=== PATIENT | female | born 1945 | race Caucasian/White ===

== ENCOUNTER → 2020-05-13 12:46 | Outpatient (BNVA) | payer MEDICARE, SELFPAY | PROVIDERS: PCP Internal Medicine; Referring Provider Internal Medicine; Visit Provider Internal Medicine Cardiovascular Disease | DX: I48.0 Paroxysmal atrial fibrillation (principal); Z79.01 Long term (current) use of anticoagulants | CPT/HCPCS: 99214 ==

== ENCOUNTER 2021-10-05 12:46 | Emergency (ER) | payer MEDICARE, SELFPAY ==
--- NOTE | ~2021-10-05 | CT_ITS ---
EXAMINATION: CT ANGIOGRAM HEAD CT ANGIOGRAM NECK CLINICAL INFORMATION: Transient ischemic attack. COMPARISON: CT head from 10/05/2021. TECHNIQUE: Initial noncontrast program coordinator executive education imaging of the head and neck was performed. Noncontrast head CT was also performed. Test bolus sequences followed by intravenous administration 70 mL of Omnipaque 350. Helical imaging was performed in the axial plane from the aortic arch to the skull vertex. Delayed postcontrast imaging of the head was also performed. The data was processed at the staff nuclear medicine technologist's workstation for generation of MIP sequences. Angled MIPs and volume rendered reformatted images were also generated at an offline 3D workstation. Stenoses are assessed in accordance with NASCET criteria unless otherwise indicated. This CT examination was performed using dose optimization techniques as appropriate, variously including the following: *Automated exposure control. *Adjustment of mA and/or kV according to patient size (this includes techniques or standardized protocols for targeted exams where dose is matched to indication/reason for exam; i.e. extremities or head). *Use of iterative reconstruction technique. DLP: 2215 mGy-cm FINDINGS: CT Head: There is no evidence of acute intracranial hemorrhage or edematous territorial infarction. Scattered hypoattenuation in the periventricular and deep white matter are consistent with mild to moderate microangiopathy. Arizmendi-white matter differentiation is preserved. Proportional prominence of the ventricles and sulcal spaces. No evidence for obstructive hydrocephalus. No abnormal mass effect or midline shift. No extra-axial fluid collections. No pathologic intra-axial enhancement or regional oligemia. No acute soft tissue or osseous abnormalities. Mild mucosal thickening of the paranasal sinuses. The mastoid air cells and middle ear cavities are clear. Multifocal odontogenic enamel erosions. Prominent periapical lucency associated with the strut of the implanted maxillary left molar. Moderate degenerative arthropathy of the temporomandibular joints. Bilateral lens extractions. CT Neck: There appears to be a 2 cm heterogeneous nodular lesion associated with the inferior pole the left thyroid lobe that extends into the upper mediastinum. Multiple additional smaller thyroid nodules. The remaining Cervical soft tissues are within normal limits. Moderate degenerative disc disease from C3-C7. Facet and uncovertebral joint arthropathy leads to osseous encroachment on the neural foramina from C4-T1. CT Upper Chest: Coronary artery calcifications. The visualized lung apices and upper mediastinum are within normal limits. Neck CTA: Aortic Arch: Normal contour and caliber with mild calcific atherosclerotic disease. 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 Great Vessel Origins: No significant stenosis of the branch origins. Right Common Carotid Artery: No focal stenosis or occlusion. Cervical Right Internal Carotid Artery: Normal opacification without focal stenosis or occlusion. Left Common Carotid Artery: No focal stenosis or occlusion. Cervical Left Internal Carotid Artery: Normal opacification without focal stenosis or occlusion. Cervical Right Vertebral Artery: Mildly dominant. No focal stenosis or occlusion. Cervical Left Vertebral Artery: No focal stenosis or occlusion. Brain CTA: Intracranial Internal Carotid Arteries: Mild calcific atherosclerotic disease of the intracranial internal carotid arteries without occlusion or flow-limiting stenosis. Right Anterior Cerebral Artery: Normal A1 segment. Normal opacification of the distal CARINA segments. Left Anterior Cerebral Artery: Normal A1 segment. Normal opacification of the distal CARINA segments. Anterior Communicating Artery: Normal. Right Middle Cerebral Artery: Normal M1 segment of the MCA without focal stenosis or occlusion. Normal arborization of the distal segments. Left Middle Cerebral Artery: Normal M1 segment of the MCA without focal stenosis or occlusion. Normal arborization of the distal segments. Right Vertebral Artery: Normal V4 segment. The posterior inferior cerebellar artery is not well opacified; however, there is no CT evidence of acute occlusion. Left Vertebral Artery: Normal V4 segment. The posterior inferior cerebellar artery is not well opacified; however, there is no CT evidence of acute occlusion. Basilar Artery: Normal without focal stenosis or occlusion. Normal appearance of the proximal superior cerebellar arteries. Right Posterior Cerebral Artery: Normal P1 segment. Normal opacification of the distal CASH OFFICE WORKER segments. Left Posterior Cerebral Artery: Normal P1 segment. Normal opacification of the distal CASH OFFICE WORKER segments. Normal opacification of the superior sagittal, straight, transverse, and sigmoid sinuses. CT/CT angio head neck IMPRESSION: 1. No evidence of acute intracranial hemorrhage or edematous territorial infarction. Mild to moderate underlying microangiopathy. 2. CTA of the head and neck without proximal occlusion or flow-limiting stenosis. 3. There is a heterogeneous 2 cm nodule associated with the left thyroid lobe. Recommend further characterization with thyroid ultrasound. 4. Moderate multilevel degenerative spondyloarthropathy of the cervical spine. 5. Coronary artery calcifications.
--- NOTE | ~2021-10-05 | CT_ITS ---
EXAMINATION: CT HEAD WITHOUT CONTRAST CLINICAL INFORMATION: Amnesia, headache COMPARISON: None TECHNIQUE: Contiguous axial imaging was performed from the skull base to vertex without intravenous administration of contrast. This CT examination was performed using dose optimization techniques as appropriate, variously including the following: *Automated exposure control *Adjustment of mA and/or kV according to patient size (this includes techniques or standardized protocols for targeted exams where dose is matched to indication/reason for exam; i.e. extremities or head) *Use of iterative reconstruction technique DLP: 635 mGy-cm FINDINGS: There is no evidence of acute intracranial hemorrhage or territorial infarction. No abnormal mass effect or midline shift is seen. Arizmendi to white matter differentiation is well preserved. No extra-axial fluid collections are identified. The ventricles are normal in size. There is no abnormal attenuation within the brain parenchyma. The osseous structures and soft tissues are normal. The mastoid air cells and visualized portions of the paranasal sinuses are well aerated. CT/CT head/brain wo con IMPRESSION: No acute intracranial process seen.
[2021-10-05 13:10] VITALS: BP 143/87; PULSE 97; RESP 18; TEMP 36.9; O2SAT 96
[2021-10-05 13:24] VITALS: BP 143/87; PULSE 97; RESP 18; TEMP 36.9; O2SAT 96; BMI 32.1
[2021-10-05 13:29] LABS: MANUAL DIFF FLAG NO
--- NOTE | 2021-10-05 13:29 | MHC.STROKE ---
ASKED TO SEE PATIENT BY CHARGE NURSE. I MET PATIENT AND HER , HE FIRST DESCRIBED THAT HER MEMORY IS OFF, SHE COULDN'T REMEMBER WHAT SHE WAS DOING LAST NIGHT AND THIS MORNING. SHE IS AOx3, NIHSS = 0. SHE IS C/O A FRONTAL IRBY, SHE HAS A HISTORY OF HEADACHES ON OCCASION. SHE IS ABLE TO ANSWER ALL MY QUESTIONS AT THIS TIME. SHE HAD A RECENT UTI AND IS ON ANTIBIOTICS. HER [id number] DIES LAST NIGHT AND SHE HAS BEEN CRYING LAST NIGHT AND THIS MORNING. HER DROVE HER TO THE ED ? STROKE. I PASSED THIS INFORMATION ON TO THE CHARGE NURSE. NO FOCAL NEURO DEFICITS FROM NIHSS.
[2021-10-05 13:33] LABS: Basophils Absolute Auto 0.1 X10*3/uL (0.0-0.2); Basophils Percent Auto 0.9 % (0-2); Eosinophils Absolute Auto 0.1 X10*3/uL (0.0-0.4); Hematocrit 39.2 % (37.0-47.0); Hemoglobin 12.4 g/dl (12.0-16.0); Imm Gran Abs Auto 0.02 X10*3/uL (0.00-0.03); Imm Gran Pct Auto 0.3 % (0.0-0.4); Lymphocytes Absolute Auto 1.6 X10*3/uL (1.2-4.9); Lymphocytes Percent Auto 23.8 % (20-40); Mean Corpuscular HGB Conc 31.6 g/dl (31.0-35.0); Mean Corpuscular Hemoglobin 26.4 pg (27.0-33.0); Mean Corpuscular Volume 83.6 fL (80.0-98.0); Mean Platelet Volume 10.1 fL (9.4-12.3); Monocytes Percent Auto 15.8 % (2-11); Neutrophils Absolute Auto 3.7 x10*3/uL (2.0-8.3); Neutrophils Percent Auto 57.2 % (45-73); Platelet Count 264 X10*3/uL (160-400); Red Blood Count 4.69 X10*6/uL (4.20-5.50); Red Cell Distribution Width 16.3 % (11.0-16.0); White Blood Count 6.5 X10*3/uL (4.8-10.8)
[2021-10-05 13:45] LABS: Anion Gap 14 (12-20); Blood Urea Nitrogen 16 mg/dL (9-16); Calcium 9.9 mg/dL (8.4-10.2); Carbon Dioxide 28 mmol/L (22-29); Chloride 100 mmol/L (96-108); Creatinine Clr Calc Pharmacy 65.1; Estimated Glomerular Filt Rate > 60; Glucose Random 110 mg/dL (60-115); Potassium 4.7 mmol/L (3.3-5.1); Sodium 137 mmol/L (135-145)
[2021-10-05 13:47] LABS: Appearance Urine CLEAR; Color Urine YELLOW; Glucose Urine UA NEG (NEG); Leukocyte Esterase Urine NEG (NEG); Nitrite Urine NEG (NEG); Specific Gravity - Urine <= 1.005 (1.005-1.025); Urine Blood NEG (NEG); Urine Ketones NEG (NEG); Urine Protein NEG (NEG-TRACE)
--- NOTE | 2021-10-05 16:57 | ED_ITS ---
HPI - General Adult General Chief complaint: General Medical Stated complaint: possible stroke Time Seen by Provider: 10/05/21 16:57 Source: patient Mode of arrival: ambulatory Limitations: no limitations History of Present Illness HPI narrative: Patient history of paroxysmal AFib on Eliquis heard the news of her b [id number] earlier in the morning was making phone calls then suddenly when he is talking to her was confused about what happened did not know how to comb whole episode lasted for 1 hour after that patient was back to normal but does not remember in that 1 hour what happened to her , totally amnesic. No focal weakness no headache no nausea no vomiting no history of seizures Related Data Home Medications Medication Instructions Recorded Confirmed acetaminophen 325 mg tablet 325 mg PO QID PRN 05/08/20 (Tylenol) apixaban 5 mg tablet (Eliquis) 5 mg PO BID 05/08/20 cholecalciferol (vitamin D3) 25 25 mcg PO DAILY 05/08/20 mcg (1,000 unit) capsule magnesium oxide,aspartate,citr mg PO 05/08/20 omeprazole 20 mg capsule,delayed 20 mg PO DAILY 05/08/20 release vitamin B complex (B 1 tab PO DAILY 05/08/20 Complex-Vitamin B12) Allergies Allergy/AdvReac Type Severity Reaction Status Date / Time No Known Allergies Allergy Verified 05/08/20 10:12 Review of Systems Review of Systems: Yes all other systems are reviewed and are negative PMFSH Past Medical History Medical History Obesity Paroxysmal atrial fibrillation Surgical History Hx of knee surgery Family History Family History Father No problems noted. Mother No problems noted. Brother No problems noted. Sister No problems noted. Son No problems noted. Daughter No problems noted. Social History Social History Smoked in Last 30 Days: No Use of substances other than those prescribed or required for medical reasons: No Advance Directives: No Advance Directives Information Provided: No Physical Exam ED Vital Signs: Vital Signs - 24 hr 10/05/21 13:10 10/05/21 13:24 10/05/21 17:17 Temperature 98.5 F 98.5 F 98.0 F Pulse Rate 97 97 107 H Respiratory Rate 18 18 20 Blood Pressure 143/87 H 143/87 H 143/89 H Pulse Oximetry 96 96 95 10/05/21 19:06 Temperature 97.8 F Pulse Rate 60 Respiratory Rate 15 Blood Pressure 135/82 Pulse Oximetry 97 BMI result Body Mass Index 32.1 Appearance: Alert. Oriented X3. No acute distress. Eyes: PERRLA, No Nystagmus ENT: Pharynx normal. Oral Mucosa moist Neck: Normal inspection. Neck supple. CVS: Normal heart rate and rhythm. Pulses normal. Respiratory: No respiratory distress. Equal air entry bilateral, no wheezing/rales/rhonchi Abdomen: Soft and nontender. Bowel sounds are present, no mass palpable, Skin: Skin warm and dry. Normal skin color. Normal skin turgor. Extremities: No lower extremity edema. No calf tenderness Neuro: Oriented X 3. No motor deficit. No sensory deficit.No cerebellar signs , cranial nerves II-XII intact NIH Stroke Scale Internal: Initial- Upon Arrival Level of Consciousness: Alert Level of Consciousness Questions: Answers both questions correctly Level of Consciousness Commands: Performs both tasks correctly Best Gaze: Normal Visual: No visual loss Facial Palsy: Normal Motor Arm (Right): No drift Motor Arm (Left): No drift Motor Leg (Right): No drift Motor Leg (Left): No drift Limb Ataxia: Absent Sensory: Normal Best Language: No aphasia Dysarthia: Normal Extinction and Inattention: No abnormality Score: 0 Medical Decision Making [facility] Narrative Medical decision making narrative: Patient with transient amnesia CT head negative for any acute CVA, CTA head and neck also negative for any acute occlusion will discharge patient home at this time patient started remembering what happened to her vitals are stable Lab Data Lab results reviewed: Yes I reviewed the patient's lab results. Result diagrams: 10/05/21 13:25 10/05/21 13:25 Labs: Lab Results 10/05/21 10/05/21 10/05/21 Range/Units 13:25 13:25 13:39 WBC 6.5 (4.8-10.8) X10*3/uL RBC 4.69 (4.20-5.50) X10*6/uL Hgb 12.4 (12.0-16.0) g/dl Hct 39.2 (37.0-47.0) % MCV 83.6 (80.0-98.0) fL MCH 26.4 L (27.0-33.0) pg MCHC 31.6 (31.0-35.0) g/dl RDW 16.3 H (11.0-16.0) % Plt Count 264 (160-400) X10*3/uL MPV 10.1 (9.4-12.3) fL Immature Gran % (Auto) 0.3 (0.0-0.4) % Neut % (Auto) 57.2 (45-73) % Lymph % (Auto) 23.8 (20-40) % Humphreys % (Auto) 15.8 H (2-11) % Eos % (Auto) 2.0 (0-4) % Baso % (Auto) 0.9 (0-2) % Lymph # (Auto) 1.6 (1.2-4.9) X10*3/uL Humphreys # (Auto) 1.0 (0.1-1.2) X10*3/uL Eos # (Auto) 0.1 (0.0-0.4) X10*3/uL Baso # (Auto) 0.1 (0.0-0.2) X10*3/uL Abs Immat Gran (auto) 0.02 (0.00-0.03) X10*3/uL Absolute Neuts (auto) 3.7 (2.0-8.3) x10*3/uL Absolute Nucleated RBC 0.000 (0.0-0.012) X10*3/uL Nucleated RBC % (auto) 0.0 (0.0-0.2) /100WBC Sodium 137 (135-145) mmol/L Potassium 4.7 (3.3-5.1) mmol/L Chloride 100 (96-108) mmol/L Carbon Dioxide 28 (22-29) mmol/L Anion Gap 14 (12-20) BUN 16 (9-16) mg/dL Creatinine 0.86 (0.5-1.4) mg/dL Estim Creat Clear Calc 65.1 Estimated GFR > 60 Random Glucose 110 (60-115) mg/dL Calcium 9.9 (8.4-10.2) mg/dL Urine Color YELLOW Urine Appearance CLEAR Urine pH 6.0 (5.0-8.0) Ur Specific Rutherford <= 1.005 (1.005-1.025) Urine Protein NEG (NEG-TRACE) MG/DL Urine Glucose (UA) NEG (NEG) MG/DL Urine Ketones NEG (NEG) MG/DL Urine Blood NEG (NEG) Urine Nitrite NEG (NEG) Ur Leukocyte Esterase NEG (NEG) ECG Data Attestation: I personally reviewed and interpreted this ECG as follows: Interpretation: Normal sinus rhythm sinus arrhythmia is normal intervals normal axis low voltage no acute STT wave changes no acute ischemia Discharge Plan Discharge Clinical Impression: Amnesia, global, transient Patient Disposition: Home, Self-Care Instructions: Transient Global Amnesia (ED) Additional Instructions: Continue Eliquis and other medications as before Follow-up with your PCP Prescriptions: No Action omeprazole 20 mg capsule,delayed release(DR/EC) 20 mg PO DAILY 0RF
--- NOTE | 2021-10-05 17:16 | ECG_ITS ---
Test Reason : ALTERED Blood Pressure : / mmHG Vent. Rate : 089 BPM Atrial Rate : 089 BPM P-R Int : 180 ms QRS Dur : 108 ms QT Int : 378 ms P-R-T Axes : 051 -80 018 degrees QTc Int : 459 ms Sinus rhythm with sinus arrhythmia with occasional Premature atrial complexes Left axis deviation Low voltage QRS Inferior infarct , age undetermined Possible Anterolateral infarct , age undetermined Abnormal ECG When compared with ECG of 31-OCT-2007 16:58, Borderline criteria for Anterior infarct are now Present Borderline criteria for Anterolateral infarct are now Present Referred By: Tejinder Huertas Electronically Signed By:SINCERE BAUTISTA
[2021-10-05 17:17] VITALS: BP 143/89; PULSE 107; RESP 20; TEMP 36.7; O2SAT 95
[2021-10-05] MEDS: iohexoL 350 MG/ML 100 ML INFUS..BTL IV (17:54)
[2021-10-05 19:06] VITALS: BP 135/82; PULSE 60; RESP 15; TEMP 36.6; O2SAT 97
== END 2021-10-05 19:45 | disposition home or self-care (01) ==
PROVIDERS: Emergency Provider Internal Medicine; PCP Internal Medicine
DX: G45.4 Transient global amnesia (principal); I48.0 Paroxysmal atrial fibrillation; Z79.01 Long term (current) use of anticoagulants; Z72.89 Other problems related to lifestyle; Z63.4 Disappearance and death of family member
CPT/HCPCS: 36415; 70450; 70496; 70498; 80048; 81003; 85025; 93005; 99284; Q9967

== ENCOUNTER → 2023-01-15 14:26 | Outpatient (BNVA) | payer MEDICARE, SELFPAY | PROVIDERS: PCP Internal Medicine; Referring Provider Internal Medicine; Visit Provider Internal Medicine Cardiovascular Disease | DX: I48.0 Paroxysmal atrial fibrillation (principal); R07.89 Other chest pain | CPT/HCPCS: 93005; 99212 ==

== ENCOUNTER → 2023-02-06 08:51 | Outpatient (REF) | payer MEDICARE, SELFPAY ==
--- NOTE | ~2023-02-06 | NM_ITS ---
EXERCISE MYOCARDIAL PERFUSION STUDY INDICATION: Chest pain, atrial fibrillation TECHNIQUE: The patient was brought in for an exercise perfusion study on 02/06/2023. Patient performed exercise as per Quinten protocol and was injected 35 mCi of sestamibi once target heart rate was achieved. Images were obtained using the SPECT gamma camera interlaced with the gating device. Images were obtained in supine position. Resting perfusion study was performed on 02/07/2023. Patient was administered 35 mCi of sestamibi intravenously at rest. Images were then obtained in supine position. Images were processed with the software and compared side to side in short axis, horizontal long axis and vertical long axis views. Total DLP 177mGy-cm. FINDINGS: Raw images were reviewed. The stress perfusion study showed diminished tracer uptake in the distal part of anterior wall, apex, distal inferolateral wall. No major change with CT attenuation correction. The gated study shows LVEF 32% but visually appears higher. LV cavity is normal in size. The gated study shows apical akinesis but otherwise normal contractility. Resting study shows minimal improvement in perfusion compared to stress imaging. Gating at rest reveals normal wall motion with ejection fraction at 59%. The findings are consistent with apical defect with reversible/fixed components, mostly fixed. NM/NM cardiolite stress test IMPRESSION: 1. Myocardial perfusion imaging study shows apical ischemia/infarct with mixed picture. 2. Gated LVEF is 36% during stress but visually appears much higher. 59% during rest. Correlate with echocardiogram. 3. Transient ischemic dilatation not present. EKG component of the test reported separately.
--- NOTE | 2023-02-06 08:55 | CA_ITS ---
Acquisition Time: 2023-02-06 10:05:38 Total Exercise Time: 00:04:59 Test Indications: CHEST PAIN AFIB Medications: ELIQUIS OMEPRAZOLE Protocol: TG Max HR: 114 BPM 80% of Pred: 142 BPM Max BP: 150/084 mmHG Max Work Load: 6.9 METS Exercise stress test exercise 4 min 59 sec of Tg protocol achieving 104% MPHR with moderate to severe SOB, no chest discomfort, with PVCs and short runs of ventricular bigeminy, with normotensive response to exercise, without EKG changes meeting criteria for ischemia. EKGs difficult to interpret during exercise due to artifact and low voltage. Nuclear images pending. Test reviewed with Dr. Webb. Referred By: Benny Maier Overread By: SHELLEY JOHNSON
--- NOTE | 2023-02-06 08:55 | CA_ITS ---
Transthoracic Echocardiogram Patient (Last, First, Middle): Andreea Cortez A Gender: Female Date of : 1945 Age: 77 Procedure Date: 02/06/2023 Procedure Type: Transthoracic Echocardiogram Location: OP Height: 167.64 cm Weight: 102.06 kg BSA: 2.10 m2 Heart Rate: bpm BP: 124 / 80 mmHg Hand Ornament Maker: Referring MD: Benny Maier MD Symptoms: I48.0 - Paroxysmal atrial fibrillation Study Quality: Good ON APICAL VIEWS ECG Rhythm: Sinus Conclusions: - The left ventricular systolic function is normal. The calculated ejection fraction is 62% by biplane method. - There is mild calcification of the aortic valve. - There is moderate mitral annular calcification. Findings Left Ventricle Normal left ventricular cavity size. There is mildly increased left ventricular wall thickness. The left ventricular systolic function is normal. The calculated ejection fraction is 62% by biplane method. There is no evidence of regional wall motion abnormalities. Diastolic function is normal for age. Right Ventricle Normal right ventricular cavity size and systolic function. Atria Both atria are normal in size. Aortic Valve The aortic valve was not well visualized. There is mild calcification of the aortic valve. There is no aortic valve stenosis. There is no aortic valve regurgitation. Mitral Valve There is moderate mitral annular calcification. There is no mitral valve regurgitation. There is no mitral valve stenosis. Pulmonic Valve The pulmonic valve is likely normal. Tricuspid Valve Normal tricuspid valve structure. There is trace tricuspid valve regurgitation. There is no evidence of pulmonary hypertension. Great Vessels The asc aorta is normal in size. Venous The inferior vena cava is normal in size and collapses greater than 50% with inspiration. Pericardium/Pleural There is no evidence of pericardial effusion. Prior Study Comparison No significant change compared to prior study dated: 05/10/2020. Recommendations, Care & Conclusions No obvious valvular pathology seen on this study. Measurements 2D Linear Measurements IVSd: 1.26 0.6-0.9/0.6-1.0 cm LVIDd: 4.16 3.9-5.3/4.2-5.9 cm LVIDd Index: 1.98 2.4-3.2/2.2-3.1 cm/m2 LVIDs: 2.61 2.0-3.6 cm LVPWd: 1.22 0.7-1.1 cm Ao Root: 3.10 2.1-3.5 cm LA Diam: 3.90 2.7-3.8/3.0-4.0 cm LAIDs Index: 1.86 1.5-2.3 cm/m2 LV Mass: 229.59 67-162/88-224 g LV Mass Index: 109.33 43-95/49-115 g/m2 LVOT Diam: 2.00 3.0+(-)1.3 cm 2D Systolic Function EF 4C: 61.30 >55% EF 2C: 63.10 >55% EF BiP: 62.10 >55% Mitral Valve MV Pk E: 0.95 MV PK A: 1.18 MV Decel Time: 183.00 E/A: 0.80 E'Lateral: 5.98 E'Medial: 6.96 E/E' Med: 13.60 E/E' Lat: 15.80 PHT: 54.00 MVA PHT: 4.07 Decel Marion: 5.17 Aortic Valve AoV Pk Alfredo: 1.75 AoV Mn Alfredo: 1.00 AoV VTI: 0.39 AoV Pk Grad: 12.00 Aov Mn Grad: 5.00 SERGEI Cont.VTI: 2.32 LVOT LVOT Pk Alfredo: 1.05 LVOT Mn Alfredo: 0.79 LVOT VTI: 0.29 LVOT Pk Grad: 4.00 LVOT Mn Grad: 3.00 LVOT Diam: 2.00 LVOT Area: 3.14 Diastolic Function MV Pk E: 0.95 MV Pk A: 1.18 E/A: 0.80 E'Medial: 6.96 E/E' Med: 13.60 E' Laterial: 5.98 E/E' Lat: 15.80 Right Ventricle TAPSE (mm): 22.00 TVS' Alfredo: 11.00 Tricuspid Valve TR Pk Alfredo: 2.10 TR Pk Grad: 18.00 RA Press: 3.00 RVSP: 21.00 Great Vessels Aorta Ao Root-2D: 3.10 2.0-3.7 cm Ao Asc: 3.60 2.1-3.4 cm Pulmonary Valve PV Pk Alfredo: 1.10 Peak PV Grad: 5.00 Updated in Other Vendor System with Status of Final Wolf Luis MD electronically signed on 02/07/2023 11:51:32 AM with status of Final
== END ==
LOC: HO.CARD 08:51
PROVIDERS: Visit Provider Internal Medicine Cardiovascular Disease
DX: R07.89 Other chest pain (principal); I48.0 Paroxysmal atrial fibrillation
CPT/HCPCS: 78452; 93017; 93306; A9500; J0280; J2785

== ENCOUNTER 2023-03-19 09:31 | Outpatient (AMB) | payer MEDICARE, SELFPAY ==
[2023-03-19 09:36] VITALS: BP 120/70; PULSE 102; BMI 36.3
--- NOTE | 2023-03-19 09:36 | A.OFFVIS_ITS ---
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 Allergies No Known Allergies Allergy (Verified 03/19/23 09:42) Medication List - Last Reconciled 03/19/23 by Claudine Brandon NP-C acetaminophen (Tylenol) 325 mg PO QID PRN apixaban (Eliquis) 5 mg PO BID cholecalciferol (vitamin D3) 25 mcg PO DAILY latanoprost 0.005% 1 drp ophthalmic (eye) BEDTIME magnesium oxide,aspartate,citr mg PO omeprazole 20 mg PO DAILY vitamin B complex (B Complex-Vitamin B12 tablet) 1 tab PO DAILY vitamin B complex (B Complex-Vitamin B12 tablet) 1 tab PO DAILY HPI f/u after CTA HPI Details Tammy is a 77-year-old female with past medical history of obesity, paroxysmal AFib who reported chest discomfort on last visit and underwent cardiac testing to evaluate. Today she reports that she has still been getting intermittent episodes of chest discomfort. She tells me it has not been often however her is present and he tells me it happens more often than she is admitting. She describes an episode approximately 2 weeks ago where she had chest discomfort across her upper chest and into her shoulders and up to her jaw. She says she has had this before and it typically will occur randomly. She takes an aspirin and it improves. She describes herself as being an active person and says that she may have had discomfort with activity in the past. She is vague in describing the frequency of her events causing me more concerned. She has some shortness of breath with exertion which she states is not new. No palpitations, dizziness, presyncope, syncope, PND, orthopnea or edema. She is taking her meds as directed. is present. [facility] Medical History Obesity Paroxysmal atrial fibrillation Surgical History Hx of knee surgery Family History Father No problems noted. Mother No problems noted. Brother Artery occlusion Sister No problems noted. Son No problems noted. Daughter No problems noted. Review of Systems Const All systems reviewed & are unremarkable except as noted in HPI and below ENT Reports dizziness Card Reports chest pain, Reports chest pain at rest, Reports chest pain with activity, Denies rapid heart rate, Denies pedal edema, Denies edema, Denies leg edema, Denies lightheadedness, Denies palpitations, Denies dyspnea, Reports dyspnea on exertion and Denies orthopnea Resp Denies cough, Denies dyspnea and Reports dyspnea on exertion GI Denies hematochezia and Denies change in stool character Musc Denies abnormal gait, Reports limited range of motion, Reports muscle cramps, Denies muscle weakness, Denies numbness, Denies radiating pain into limb, Denies stiffness and Denies tingling Neuro Denies abnormal gait, Reports dizziness, Denies numbness and Denies tingling Endo Denies palpitations Physical Exam Vital Signs: Last Vital Signs Pulse 102 H 03/19/23 09:36 BP 120/70 03/19/23 09:36 BMI result Body Mass Index 36.3 Const General: cooperative, healthy appearing, comfortable and no acute distress Orientation/consciousness: patient oriented x3 Neck Neck: Yes normal visual inspection Resp Effort & Inspection: normal respiratory effort Auscultation: clear to auscultation bilaterally, no crackles, no rales, no rhonchi and no wheezes Cardio Jugular venous distension: no JVD Rate: regular rate Rhythm: regular rhythm Heart sounds: S1 normal heart sound present, S2 normal heart sound present, no gallops, no murmurs and no rubs GI Inspection: Yes normal to inspection Neuro General: patient oriented x3 Extrem General: Yes normal to inspection Psych Appearance: grossly normal Mental Status: mental status grossly normal Speech and movement: Normal speech and movement present Assessment & Plan Assessment & Plan (1) Coronary atherosclerosis: Code(s): I25.10 - Atherosclerotic heart disease of [place] coronary artery without angina pectoris Plan: Newer evaluation for chest discomfort. Patient tells me it has been occurring for quite some time however she is vague in admitting to the severity or frequency. She has no known history of coronary artery disease prior to her testing. She had a an echocardiogram done on 02/06/2023 showing EF 62%, mild aortic valve calcification, moderate mitral annular calcification. A nuclear stress test was done 02/07/2023 showing apical ischemia/in EF down which does not correlate with the echo. She then underwent a CTA of the coronary arteries on 03/16/2023 showing left main less than 50% stenosis, lad less than 30% stenosis. Other arteries without any significant stenosis. At this time with her symptoms will plan for diagnostic cardiac catheterization for further evaluation. She is not on aspirin as she is on Eliquis. Will start atorvastatin and low-dose metoprolol. The reason for each medication and potential side effects reviewed. Cardiac catheterization procedure and risks reviewed with her. She will need to hold Eliquis 48 hours prior to the procedure. Preprocedure labs including CBC, BMP, PT INR ordered. Emergency care if needed for symptoms of chest discomfort not relieved by rest. Instructed on light physical activity. Cardiology follow-up 2 weeks post cath. (2) Chest discomfort: Code(s): R07.89 - Other chest pain (3) Abnormal nuclear stress test: Code(s): R94.39 - Abnormal result of other cardiovascular function study (4) Paroxysmal atrial fibrillation: Comment: Code(s): I48.0 - Paroxysmal atrial fibrillation Plan: History of paroxysmal atrial fibrillation. She has not had any concerning episodes recently. She is not on rate slowing medications however will be starting low-dose metoprolol as above. Pulse rate is mildly elevated today which she admits to being anxious over test results. Blood pressure is well controlled. She is on Eliquis for anticoagulation. No neurological changes reported. Continue current treatment (5) Obesity: Code(s): E66.9 - Obesity, unspecified Orders: Orders Cardiac Cath LT Diagnostic Today I25.10 - Atherosclerotic heart disease of [place] coronary artery without angina pectoris, R07.89 - Other chest pain, R94.39 - Abnormal result of other cardiovascular function study Basic Metabolic Panel Today R94.39 - Abnormal result of other cardiovascular function study Prothrombin Time INR Today R94.39 - Abnormal result of other cardiovascular function study Complete Blood Count Auto Diff Today R94.39 - Abnormal result of other cardiovascular function study Medications: New atorvastatin 20 mg PO BEDTIME 30 tabs 3RF metoprolol succinate ER 25 mg PO DAILY 30 tabs 3RF Coding Level of Care Code Est Pt Level 4 (87388) Diagnoses Coronary atherosclerosis I25.10 Chest discomfort R07.89 Abnormal nuclear stress test R94.39 Paroxysmal atrial fibrillation I48.0 Obesity E66.9 Time Spent (min) 36 Comment Chart review, documentation, interview, assessment, orders
== END 2023-03-19 10:41 | disposition home or self-care (01) ==
PROVIDERS: Visit Provider Nurse Practitioner Family
DX: I25.10 Atherosclerotic heart disease of native coronary artery without angina pectoris (principal); R07.89 Other chest pain; R94.39 Abnormal result of other cardiovascular function study; I48.0 Paroxysmal atrial fibrillation; E66.9 Obesity, unspecified
CPT/HCPCS: 99214

== ENCOUNTER → 2023-03-19 09:31 | Outpatient (BNVA) | payer MEDICARE, SELFPAY | PROVIDERS: Visit Provider Nurse Practitioner Family | DX: R07.89 Other chest pain (principal); I48.0 Paroxysmal atrial fibrillation; I25.10 Atherosclerotic heart disease of native coronary artery without angina pectoris; R94.39 Abnormal result of other cardiovascular function study; E66.9 Obesity, unspecified; Z68.36 Body mass index [BMI] 36.0-36.9, adult | CPT/HCPCS: 99212 ==

== ENCOUNTER 2023-04-06 11:33 | Outpatient (REF) | payer MEDICARE, SELFPAY ==
[2023-04-06 11:44] LABS: MANUAL DIFF FLAG NO
[2023-04-06 13:50] LABS: Prothrombin Time 11.7 SEC (11.1-13.3)
[2023-04-06 13:54] LABS: Basophils Absolute Auto 0.1 X10*3/uL (0.0-0.2); Basophils Percent Auto 1.5 % (0-2); Eosinophils Absolute Auto 0.2 X10*3/uL (0.0-0.4); Eosinophils Percent Auto 4.2 % (0-4); Hematocrit 43.6 % (37.0-47.0); Hemoglobin 14.2 g/dl (12.0-16.0); Lymphocytes Absolute Auto 1.4 X10*3/uL (1.2-4.9); Lymphocytes Percent Auto 35.3 % (20-40); Mean Corpuscular HGB Conc 32.6 g/dl (31.0-35.0); Mean Corpuscular Hemoglobin 30.2 pg (27.0-33.0); Mean Corpuscular Volume 92.8 fL (80.0-98.0); Mean Platelet Volume 11.2 fL (9.4-12.3); Monocytes Absolute Auto 0.6 X10*3/uL (0.1-1.2); Monocytes Percent Auto 14.9 % (2-11); Neutrophils Absolute Auto 1.8 x10*3/uL (2.0-8.3); Neutrophils Percent Auto 44.1 % (45-73); Platelet Count 252 X10*3/uL (160-400); Red Cell Distribution Width 13.6 % (11.0-16.0)
[2023-04-06 14:31] LABS: Anion Gap 12 (12-20); Blood Urea Nitrogen 15 mg/dL (9-16); Calcium 9.5 mg/dL (8.4-10.2); Carbon Dioxide 28 mmol/L (22-29); Chloride 105 mmol/L (96-108); Estimated Glomerular Filt Rate > 60; Glucose Random 72 mg/dL (60-115); Potassium 4.2 mmol/L (3.3-5.1); Sodium 141 mmol/L (135-145)
== END 2023-04-06 11:34 | disposition home or self-care (01) ==
LOC: HO.LAB 11:33
PROVIDERS: Absent Provider Nurse Practitioner Family; PCP Internal Medicine; Visit Provider Internal Medicine Cardiovascular Disease
DX: R94.39 Abnormal result of other cardiovascular function study (principal); R07.89 Other chest pain
CPT/HCPCS: 36415; 80048; 85025; 85610

== ENCOUNTER → 2023-04-24 23:59 | Outpatient (BNV) | payer MEDICARE, SELFPAY | PROVIDERS: PCP Internal Medicine; Visit Provider Internal Medicine Cardiovascular Disease | DX: R93.1 Abnormal findings on diagnostic imaging of heart and coronary circulation (principal) | CPT/HCPCS: 93458; 99152 ==

== ENCOUNTER 2023-05-08 09:31 | Outpatient (AMB) | payer MEDICARE, SELFPAY ==
--- NOTE | 2023-05-08 09:35 | MHC.OFFVIS ---
Intake Vital Signs 05/08/23 09:36 Height 5 ft 7 in Weight 233 lb 11.04 oz BMI 36.6 BP 124/88 Blood Pressure Location Lt brachial Position Sitting Pulse 99 Pulse Source Pulse Oximeter Pulse Oximetry (%) 95 Oxygen Delivery Method Room Air Intake Visit Reasons: Follow up post cardiac cath Intake Note: Pt presents to the office today for a follow up post cardiac cath. Pt states she is feeling well. Pt denies any SOB or chest pain. Accompanied by: Daughter Allergies No Known Allergies Allergy (Verified 05/08/23 09:37) Medication List - Last Reconciled 05/08/23 by Claudine Brandon NP-C acetaminophen (Tylenol) 325 mg PO QID PRN apixaban (Eliquis) 5 mg PO BID cholecalciferol (vitamin D3) 25 mcg PO DAILY latanoprost 0.005% 1 drp ophthalmic (eye) BEDTIME magnesium oxide,aspartate,citr mg PO metoprolol succinate ER 25 mg PO DAILY omeprazole 20 mg PO DAILY vitamin B complex (B Complex-Vitamin B12 tablet) 1 tab PO DAILY vitamin B complex (B Complex-Vitamin B12 tablet) 1 tab PO DAILY HPI Follow up post cardiac cath HPI Details Tammy is a 77-year-old female with past medical history of obesity, paroxysmal AFib, chest discomfort who recently underwent cardiac catheterization and now presents for follow-up. Today she reports she has been feeling well overall. She did have an episode of heart palpitations recently lasting several minutes. She is noticing less palpitations on the metoprolol which was added not long ago. At times with palpitations she notices the chest discomfort. No exertional chest discomfort. No shortness of breath, presyncope, syncope, falls. No PND, orthopnea or edema. She tells me she is not taking statin medication and she is trying more natural measures to reduce her cholesterol. No bleeding issues reported. Right radial catheterization site feels good. Daughter is present. [facility] Medical History Obesity Paroxysmal atrial fibrillation Surgical History (Updated 05/08/23 @ 10:48 by Claudine Brandon NP-C) Hx of knee surgery Family History Father No problems noted. Mother No problems noted. Brother Artery occlusion Sister No problems noted. Son No problems noted. Daughter No problems noted. Social History Household Members: Spouse Housing: House Alcohol intake: never Patient Tobacco Use Status: Never used Tobacco Current occupational status: retired Review of Systems Const All systems reviewed & are unremarkable except as noted in HPI and below Card Details: No recent chest discomfort. Does get intermittent heart palpitations. Musc Details: Right radial catheterization site feels well Physical Exam Vital Signs: Last Vital Signs Pulse 99 05/08/23 09:36 BP 124/88 05/08/23 09:36 Pulse Ox 95 05/08/23 09:36 Oxygen Delivery Method Room Air 05/08/23 09:36 BMI result Body Mass Index 36.6 Const General: cooperative, healthy appearing, comfortable and no acute distress Orientation/consciousness: patient oriented x3 Neck Neck: Yes normal visual inspection and Yes no JVD Resp Effort & Inspection: normal respiratory effort Auscultation: clear to auscultation bilaterally, no crackles, no rales, no rhonchi and no wheezes Cardio Jugular venous distension: no JVD Rate: regular rate Rhythm: regular rhythm Heart sounds: S1 normal heart sound present, S2 normal heart sound present, no gallops, no murmurs and no rubs Neuro General: patient oriented x3 Extrem Other: Right radial catheterization site with easily palpable radial artery, hand assessment normal General: Yes normal to inspection and No no pedal edema Psych Appearance: grossly normal Mental Status: mental status grossly normal Speech and movement: Normal speech and movement present Assessment & Plan Assessment & Plan (1) Coronary atherosclerosis: Code(s): I25.10 - Atherosclerotic heart disease of [place] coronary artery without angina pectoris Plan: Reports of chest discomfort. Patient tells me it has been occurring for quite some time however she is vague in admitting to the severity or frequency. She has no known history of coronary artery disease prior to her testing. She had a an echocardiogram done on 02/06/2023 showing EF 62%, mild aortic valve calcification, moderate mitral annular calcification. A nuclear stress test was done 02/07/2023 showing apical ischemia, EF down which does not correlate with the echo. She then underwent a CTA of the coronary arteries on 03/16/2023 showing left main less than 50% stenosis, lad less than 30% stenosis. Other arteries without any significant stenosis. She then underwent a diagnostic cardiac catheterization on 04/24/2023 showing mild disease in the left main, lad minimal luminal irregularities. Spent time reviewing test results with her. Diagnosis of mild coronary artery disease. Will continue on medical management. She is not on aspirin as she is on Eliquis. She is not interested in taking statin medication. She is taking more natural agents to reduce her cholesterol. Her her labs are followed by her PCP. Will reach out to obtain most recent lipid profile. Continue low-dose metoprolol. (2) Abnormal nuclear stress test: Code(s): R94.39 - Abnormal result of other cardiovascular function study (3) Paroxysmal atrial fibrillation: Comment: Code(s): I48.0 - Paroxysmal atrial fibrillation Plan: History of paroxysmal atrial fibrillation. Today she reports intermittent heart palpitations, she has had less since the start of metoprolol. She is on Eliquis for anticoagulation. No bleeding issues reported. She is asking about ablation to get rid of atrial fibrillation. She is not interested it in antiarrhythmic therapy. She ultimately does not want to take medications and prefers more natural approaches. She is willing to undergo a procedure if it will help take care of this problem. Check with Dr. Maier, and refer to EP if he agrees. (4) S/P cardiac catheterization: Comment: 04/24/2023, left main mild disease distal, lad minimal luminal irregularities, left circumflex and RCA normal Code(s): Z98.890 - Other specified postprocedural states Plan: Right radial catheterization site well healed Coding Level of Care Code Est Pt Level 4 (78515) Diagnoses Coronary atherosclerosis I25.10 Abnormal nuclear stress test R94.39 Paroxysmal atrial fibrillation I48.0 S/P cardiac catheterization Z98.890 Time Spent (min) 26
[2023-05-08 09:36] VITALS: BP 124/88; PULSE 99; O2SAT 95; BMI 36.6
== END 2023-05-08 10:04 | disposition home or self-care (01) ==
PROVIDERS: PCP Internal Medicine; Visit Provider Nurse Practitioner Family
DX: I25.10 Atherosclerotic heart disease of native coronary artery without angina pectoris (principal); R94.39 Abnormal result of other cardiovascular function study; I48.0 Paroxysmal atrial fibrillation; Z98.890 Other specified postprocedural states
CPT/HCPCS: 99214

== ENCOUNTER → 2023-05-08 09:31 | Outpatient (BNVA) | payer MEDICARE, SELFPAY | PROVIDERS: PCP Internal Medicine; Visit Provider Nurse Practitioner Family | DX: I25.10 Atherosclerotic heart disease of native coronary artery without angina pectoris (principal); R94.39 Abnormal result of other cardiovascular function study; I48.0 Paroxysmal atrial fibrillation; Z98.890 Other specified postprocedural states | CPT/HCPCS: 99212 ==

== ENCOUNTER 2023-10-29 09:57 | Outpatient (AMB) | payer MEDICARE, SELFPAY ==
[2023-10-29 10:03] VITALS: BP 120/72; PULSE 70; BMI 35.9
--- NOTE | 2023-10-29 10:03 | A.OFFVIS_ITS ---
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 Allergies No Known Allergies Allergy (Verified 05/08/23 09:37) Medication List - Last Reconciled 10/29/23 by Benny Maier MD acetaminophen (Tylenol) 325 mg PO QID PRN apixaban (Eliquis) 5 mg PO BID cholecalciferol (vitamin D3) 25 mcg PO DAILY diltiazem HCl 120 mg PO DAILY PRN flaxseed oil 1,000 mg PO DAILY latanoprost 0.005% 1 drp ophthalmic (eye) BEDTIME magnesium oxide,aspartate,citr mg PO omeprazole 20 mg PO DAILY vit B comp,C-vit E-FA-dariana-Zn 35-2.5-70-20 [id number]-bg-mcw-mg tabs PO vitamin B complex (B Complex-Vitamin B12 tablet) 1 tab PO DAILY zinc gluconate 30 mg PO DAILY HPI HPI Comments History of Present Illness Details Andreea comes for follow-up. Since we last saw 6 months ago she said she has had only couple of episodes of atrial fibrillation. No clear trigger factors identified. She usually relax and the symptoms resolve within few minut es. The symptoms are not very bothersome to her. She takes Cardizem only need be and has not taken Cardizem in the last 6 months. Takes only medication is oral anticoagulation therapy with Eliquis. She denies any other cardiac symptoms. No exertional chest pain or shortness of breath. As you recall she is nonobstructive CAD by coronary CTA. [facility] Medical History Obesity Paroxysmal atrial fibrillation Surgical History Hx of knee surgery Family History Father No problems noted. Mother No problems noted. Brother Artery occlusion Sister No problems noted. Son No problems noted. Daughter No problems noted. Social History Household Members: Spouse Housing: House Alcohol intake: never Patient Tobacco Use Status: Never used Tobacco Current occupational status: retired Review of Systems Const Denies chills, Denies fatigue, Denies fever(s), Denies frequent falls, Denies weakness, Denies weight gain and Denies weight loss ENT Denies dizziness Card Denies chest pain, Denies leg edema, Denies lightheadedness, Denies palpitations, Denies dyspnea, Denies dyspnea on exertion, Denies orthopnea and Denies other (loss of consciousness) Resp Denies cough, Denies dyspnea and Denies dyspnea on exertion GI Denies hematochezia and Denies change in stool character Musc Denies abnormal gait, Denies muscle weakness, Denies numbness, Denies radiating pain into limb and Denies tingling Neuro Denies abnormal gait, Denies dizziness, Denies frequent falls, Denies numbness, Denies tingling and Denies weakness Endo Denies fatigue and Denies palpitations Physical Exam Vital Signs: Last Vital Signs Pulse 70 10/29/23 10:03 BP 120/72 10/29/23 10:03 BMI result Body Mass Index 35.9 Const General: cooperative, healthy appearing, comfortable and no acute distress Orientation/consciousness: patient oriented x3 Neck Neck: Yes normal visual inspection and Yes no JVD Resp Effort & Inspection: normal respiratory effort Auscultation: clear to auscultation bilaterally, no crackles, no rales, no rhonchi and no wheezes Cardio Jugular venous distension: no JVD Rate: regular rate Rhythm: regular rhythm Heart sounds: S1 normal heart sound present, S2 normal heart sound present, no gallops, no murmurs and no rubs Neuro General: patient oriented x3 Extrem Other: Right radial catheterization site with easily palpable radial artery, hand asse ssment normal General: Yes normal to inspection and No no pedal edema Psych Appearance: grossly normal Mental Status: mental status grossly normal Speech and movement: Normal speech and movement present Assessment & Plan Assessment & Plan (1) Paroxysmal atrial fibrillation: Comment: Code(s): I48.0 - Paroxysmal atrial fibrillation Plan: Paroxysmal atrial fibrillation with no life-limiting symptoms are recurrent episodes. At this point time she takes Cardizem as need be. We discussed about avoidance of triggers although she has not clear about the same. We also discussed about avoiding stimulants. Importance of full oral anticoagulation with Eliquis was discussed. Semi annual renal function test should be pursued. She was wondering about Watchman device and I told her that she is not a candidate for the same. Continue participate in weight loss program. Continue regular physical activity. (2) Coronary atherosclerosis: Code(s): I25.10 - Atherosclerotic heart disease of [place] coronary artery without angina pectoris Plan: CAD, nonobstructive. Currently doing well. Continue aggressive medical therapy. We discussed the possibility of statin therapy, she has not interested in any additional therapy at this point time. Currently on full oral anticoagulation Eliquis and therefore avoid aspirin therapy. Blood pressure is currently well optimized. Follow up in the clinic in 1 year's time, sooner p.r.n.. Thank you for allowing me to partake in the care Medications: Changed From diltiazem HCl 120 mg PO DAILY 30 caps 5RF To diltiazem HCl 120 mg PO DAILY PRN Coding Level of Care Code Est Pt Level 4 (45929) Diagnoses Paroxysmal atrial fibrillation I48.0 Coronary atherosclerosis I25.10
== END 2023-10-29 10:30 | disposition home or self-care (01) ==
PROVIDERS: PCP Internal Medicine; Visit Provider Internal Medicine Cardiovascular Disease
DX: I48.0 Paroxysmal atrial fibrillation (principal); I25.10 Atherosclerotic heart disease of native coronary artery without angina pectoris
CPT/HCPCS: 99214

== ENCOUNTER → 2023-10-29 09:57 | Outpatient (BNVA) | payer MEDICARE, SELFPAY | PROVIDERS: PCP Internal Medicine; Visit Provider Internal Medicine Cardiovascular Disease | DX: I48.0 Paroxysmal atrial fibrillation (principal); I25.10 Atherosclerotic heart disease of native coronary artery without angina pectoris | CPT/HCPCS: 99212 ==